=== PATIENT | male | born 1955 | race Caucasian/White ===

== ENCOUNTER 2022-02-09 05:12 | Observation (INO) ==
--- NOTE | 2021-12-24 14:09 | PAT Medication Instructions ---
Medication Instructions Date of Service December 24, 2021 Home Medications ibuprofen 200 mg tablet 200 mg PO Q6H PRN Pain sildenafil 100 mg tablet 100 mg PO DAILY PRN Erectile Dysfunction terazosin 2 mg capsule 2 mg PO HS Prostate Maintain Otc 2 tab PO QAM glucosamine sulf dipot chlr,msm,chond 550 mg-C 30 mg-nicole 1 mg capsule (Glucosamine Chondroitin) 1 cap PO QAM -zzs-lie-other kktii0f-twbj oil 350 mg- 400 mg capsule 1 cap PO QAM red yeast rice 600 mg capsule 1,200 mg PO QAM turmeric root extract 500 mg capsule 500 mg PO QAM ASK your surgeon for instructions ibuprofen 200 mg tablet 200 mg PO Q6H PRN Pain STOP taking 2 weeks before surgery Prostate Maintain Otc 2 tab PO QAM glucosamine sulf dipot chlr,msm,chond 550 mg-C 30 mg-nicole 1 mg capsule (Glucosamine Chondroitin) 1 cap PO QAM qdyed1-vmm-tjl-other psvly9m-eefx oil 350 mg- 400 mg capsule 1 cap PO QAM red yeast rice 600 mg capsule 1,200 mg PO QAM turmeric root extract 500 mg capsule 500 mg PO QAM STOP taking 24 hours before surgery sildenafil 100 mg tablet 100 mg PO DAILY PRN Erectile Dysfunction Take evening before surgery terazosin 2 mg capsule 2 mg PO HS OTHERWISE NOTHING TO EAT OR DRINK AFTER MIDNIGHT: Other Notes If you have any questions please call us at [phone] or [phone] or [phone] or [phone]
--- NOTE | 2022-01-23 13:36 | Anesthesiology Consultation ---
Date of Service January 23, 2022 Assessment & Plan (1) Encounter for pre-operative examination: - COVID screening: Per assessment on 01/23: No known COVID-19 positive contacts or current COVID-19 related symptoms. Travel screen negative. Pt was Covid positive approximately 01/06/22 (home test) > Symptoms resolved (Covid test done 01/23/22; [place] was negative). At surgeon discretion if preop Covid testing being done. - Outpatient joint assessment: Pt currently scheduled for inpatient pathway. If surgeon requests review for outpatient joint pathway, patient is acceptable candidate for outpatient joint program from anesthesia standpoint pending surgeon's office assessment of pt motivation/support/completion of same day joint program preop requirements. Chart Review Chart Review: Acceptable Risk for Surgery and Patient seen in Pre Admission Testing Teaching & Discussion Pre-Anesthesia Teaching/Discussion Notes: Instructed NPO after midnight before surgery,except medications with 15 cc of water. Medication instructions provided according to the PAT guidelines. History Surgery Operation Date: 02/09/22 09:50 Proposed Procedures p Right Total Hip Arthroplasty - David Najera MD Height/Weight Height: 6 ft Weight: 102.1 kg Allergies Allergy/AdvReac Type Severity Reaction Status Date / Time Tetracyclines Allergy Unknown Hives Verified 12/23/21 15:37 Medications Home Medications Medication Instructions Recorded Confirmed Last Taken ibuprofen 200 mg tablet 200 mg PO Q6H PRN Pain 12/05/21 12/23/21 Unknown sildenafil 100 mg tablet 100 mg PO DAILY PRN Erectile 12/05/21 12/23/21 Unknown Dysfunction terazosin 2 mg capsule 2 mg PO HS 12/05/21 12/23/21 Unknown Prostate Maintain Otc 2 tab PO QAM 12/23/21 12/23/21 Unknown glucosamine sulf dipot 1 cap PO QAM 12/23/21 12/23/21 Unknown chlr,msm,chond 550 mg-C 30 mg-nicole 1 mg capsule (Glucosamine Chondroitin) multivitamin 1 tab PO QAM 12/23/21 12/23/21 Unknown sddea6-adt-bke-other icxhq5r-hhhl 1 cap PO QAM 12/23/21 12/23/21 Unknown oil 350 mg- 400 mg capsule red yeast rice 600 mg capsule 1,200 mg PO QAM 12/23/21 12/23/21 Unknown turmeric root extract 500 mg 500 mg PO QAM 12/23/21 12/23/21 Unknown capsule Past Medical History Medical History Arthritis of right hip Cancer BCC x2 History of COVID-19 04/2020 > fatigue, resolved Approximately 01/06/22 (home test) > symptoms resolved (Covid test done 01/23/22; [place] was negative) Lumbar spondylosis Stenosis, cervical spine Exercise / Class Metabolic Activity II 4-5 Yardwork/Stairs/Walk up hill (one FS (no CP, no SOB)) Past Family History Family History Other No known health problems Past Surgical History Surgical History History of colonoscopy x3 History of tonsillectomy History of tooth extraction WTE Past Anesthesia History No Hx of Anesthesia Complications and No Family Hx of Anesthesia Complications History of PONV No Hx of PONV and No Hx of Motion Sickness Social History Smoking Status: Never smoker Do You Dip or Chew Tobacco: No Hx Alcohol Use: Yes Alcohol type: wine alcohol intake frequency: a few times a week Hx Substance Use: No Review of Systems Patient denies chest pain, shortness of breath, dyspnea on exertion, fever, chills, cough, wheezing, palpitations. Physical Exam Vital Signs VITALS BP 132/75 P 68 TEMP 98.3 SP02 97%RA RESP 18 PHYSICAL Significantly decreased cervical extension range of motion (2/2 arthritis per pt). Full TMJ range of motion. TMD 3 finger breaths Mallampati Score 2 Dentition: intact, + crown Lungs: clear throughout to auscultation Cardiac: regular rate and rhythm, no murmurs noted Spine: normal Carotid arteries: negative bruit Extremities: no edema Lab Results Anesthesia Preop Results Results Anesthesia Widget: WBC 4.30 K/ul (4.8-10.8) L 01/23/22 Hgb 14.1 g/dl (14.0-18.0) 01/23/22 Hct 41.9 % (40.1-51.0) 01/23/22 Plt 164 K/uL (130-400) 01/23/22 Na 137 mmol/L (136-145) 01/23/22 K 3.5 mmol/L (3.5-5.1) 01/23/22 Cl 103 mmol/L (98-107) 01/23/22 CO2 27 mmol/L (21-32) 01/23/22 BUN 10 mg/dl (6-23) 01/23/22 Creat 0.92 mg/dl (0.6-1.4) 01/23/22 Glucose Level 97 mg/dl (70-99(Fasting)) 01/23/22 PT 10.4 Seconds (9.0-12.0) 01/23/22 PTT 27.3 Seconds (21.0-31.0) 01/23/22 INR 1.0 (0.9-1.1) 01/23/22 Blood Type A Positive 01/23/22 Antibody Screen NEGATIVE 01/23/22 Testing Electrocardiogram Date: 01/23/22 Findings: + SB @ (57) Chest X-Ray Date: 12/22/21 Findings: + NAD COVID-19 Risk Screen Screening Information COVID-19 Screen Date: 01/23/22 Exposure 21 Days Family/Household +COVID Last 21 Days: No Exposure 10 Days Any COVID Exposure Last 10 Days: No Symptoms Last 10 Days Experienced COVID Sx Last 10 Days: No + COVID 0-90 Days COVID + in Last 0-90 Days: Yes + COVID Test 0-10 Day: No + COVID Test 11-90 Day: Yes
--- NOTE | 2022-02-07 11:50 | History and Physical Report ---
DATE OF SERVICE: 02/09/2022 CHIEF COMPLAINT: Persistent progressive right hip pain and discomfort. HISTORY OF PRESENT ILLNESS: A 66-year-old gentleman who presents for surgical treatment of his right hip. He has got a fairly long history of gradually progressive increasing right hip pain and discom fort that has gradually gotten worse over the past several years. He describes lateral hip, groin pa in, thigh pain radiating down to his knee and no further. He did have an intraarticular hip joint in jection, which helped him for about 3 days. He has become more debilitated by his pain. He limps mo re as the day goes on. He does have a history of some back issues as well, but would like to get his hip fixed. PAST MEDICAL HISTORY: 1. Hypertension. 2. Elevated cholesterol. 3. Chronic back pain. PAST SURGICAL HISTORY: Includes: 1. Tonsillectomy. 2. Oral surgery. ALLERGIES: TETRACYCLINE. CURRENT MEDICATIONS: Include: 1. Ibuprofen. 2. Terazosin. 3. Sildenafil. 4. Multivitamin. 5. Aspirin. 6. Tylenol. SOCIAL HISTORY: A 66-year-old gentleman. He is . 8 drinks per week. Does not smoke. FAMILY HISTORY: Noncontributory. REVIEW OF SYSTEMS: Negative for diabetes. No chest pain or shortness of breath. No history of DVT or PE. No known bleeding problems. PHYSICAL EXAMINATION: GENERAL: Shows a pleasant middle-aged male. Looks to be in pretty good health. HEENT: Benign. NECK: Supple. No lymphadenopathy. LUNGS: Clear to auscultation. HEART: Regular rate and rhythm. ABDOMEN: Soft, nontender, nondistended. EXTREMITIES: Grossly neurovascularly intact except as follows: Examination of the right hip reveals the patient walks with a slightly antalgic gait. Leg lengths appear equal. He has got pretty decen t hip motion with internal rotation to 10 degrees, but it recreates his pain. Negative straight leg raise. He is neurologically intact. X-RAYS: X-rays of the right hip show a moderate to advanced hip arthritis. He has got a similar mod erate to advanced hip arthritis in both hips. Near complete loss of his joint space. Still a little cartilage space remaining. Got some calcifications over the lateral acetabulum. He has got a Cam t ype impingement. ASSESSMENT: A 66-year-old gentleman with moderately advanced hip arthritis in both hips, right side more symptomatic than the left. He has failed conservative measures. Temporary response to injectio n. He would like to have his hip fixed. PLAN: We are going to proceed with right total hip replacement. The risks and benefits of this proc edure were explained to the patient and include but not limited to DVT, PE, , infection, neurolo gical injury, vascular injury, bleeding problem, pain, limited range of motion, stiffness, failure to relieve his symptoms, incomplete relief of symptoms, etc. The patient understands and desires to pr oceed. Informed consent was obtained. He is fully aware that this is not going to address his back issues. As far as discharge plans, he is planning to be discharged to home. He will use [employer] [facility] program. Job ID: [id number]
[2022-02-09] MEDS ORDERED: LR 60ML/HR IV SCH (06:00)
[2022-02-09] MEDS ORDERED: METOCLOPRAMIDE HCL 10 MG TABLET PO SCH (06:00)
[2022-02-09] MEDS ORDERED: LR 500ML BOLUS, THEN 15ML/HR IV SCH (06:00)
[2022-02-09] MEDS ORDERED: TRANEXAMIC ACID 1,000 MG **IV Pre-op IV SCH (06:00)
[2022-02-09] MEDS ORDERED: FAMOTIDINE 20 MG TAB PO SCH (06:00)
[2022-02-09] MEDS ORDERED: ACETAMINOPHEN 500 MG TAB PO SCH (06:00)
[2022-02-09] MEDS ORDERED: ceFAZolin 2000MG 2,000 MG/15 ML SYR IV SCH (06:00)
[2022-02-09] MEDS ORDERED: Scopolamine 1 MG TDSY TD SCH (06:00)
[2022-02-09] MEDS ORDERED: CeleBREX 200 MG CAP PO SCH (06:00)
[2022-02-09] MEDS ORDERED: BUPIVACAINE 0.5 % 5 MG/1 ML PF 10ML VIAL ONE (06:24)
[2022-02-09] MEDS ORDERED: EPINEPHrine INJ 1 MG/ML AMP ONE (06:35)
[2022-02-09] MEDS ORDERED: BUPIVACAINE 0.5 % 5 MG/1 ML MPF 30ML VIAL ONE (06:35)
[2022-02-09] MEDS ORDERED: MoRPHine SULFATE PF 1 MG/ML 10 ML AMP/VIAL ONE (06:38)
[2022-02-09] MEDS ORDERED: PROPOFOL IV EMULSION 10 MG/ML 20 ML VIAL IV ONE ×2 (06:38→08:19)
[2022-02-09] MEDS ORDERED: fentaNYL citrate 100 MCG/2 ML VIAL ONE (06:38)
[2022-02-09] MEDS ORDERED: MIDAZOLAM HCL 1 MG/ML 2ML VIAL ONE (06:38)
[2022-02-09] MEDS ORDERED: LIDOCAINE 2% MPF LOCAL 5 ML VIAL INFIL ONE (06:38)
--- NOTE | 2022-02-09 06:56 | History & Physical Bridge Note ---
Date of Service February 09, 2022 History & Physical Bridge Note I have examined the patient, reviewed the History & Physical and in the interval since the performance of the History & Physical I have noted the following changes of clinical significance: no changes noted
[2022-02-09] MEDS ORDERED: ONDANSETRON INJ 2 MG/ML 2 ML VIAL ONE (07:16)
[2022-02-09] MEDS ORDERED: NALOXONE HCL 0.4 MG/1 ML VIAL/CARP IV PRN ×2 (07:53→10:13)
[2022-02-09] MEDS ORDERED: PROMETHAZINE HCL 25 MG in SODIUM CHLORIDE 0.9% 50 ML IV PRN (07:53)
[2022-02-09] MEDS ORDERED: METOCLOPRAMIDE HCL 20 MG in SODIUM CHLORIDE 0.9% 50 ML IV PRN (07:53)
[2022-02-09] MEDS ORDERED: ePHEDrine sulfate 50 MG/ML AMP IV PRN (07:53)
[2022-02-09] MEDS ORDERED: LACTATED RINGER'S 500 ML IV PRN (07:53)
[2022-02-09] MEDS ORDERED: NALBUPHINE HCL INJ 10 MG/ML AMP IV PRN (07:53)
[2022-02-09] MEDS ORDERED: NALOXONE HCL 1 MG in SODIUM CHLORIDE 0.9% 1000ML 1,000 ML IV PRN (07:53)
[2022-02-09] MEDS ORDERED: MoRPHine SULFATE PF 1 MG/ML 10 ML AMP/VIAL INT SPINAL ONE (07:53)
[2022-02-09] MEDS ORDERED: HYDROmorphone INJ 0.5 MG/0.5 ML SYR IV PRN (07:53)
[2022-02-09] MEDS ORDERED: NALOXONE HCL 0.08 MG in SYRINGE 1.8 ML IV PRN (07:53)
[2022-02-09] MEDS ORDERED: NO NARCOTICS OR SEDATIVES SCH (08:00)
[2022-02-09] MEDS ORDERED: SODIUM CHLORIDE 0.9% 1000ML 1,000 ML IV SCH (08:00)
[2022-02-09] MEDS ORDERED: DC INTRASPINAL MORPHINE SCH (08:00)
--- NOTE | 2022-02-09 08:43 | Operative Report ---
PG Post Operative Report Pre & Post Diagnosis Operation Date: 02/09/22 07:00 Pre-Op Diagnosis: Right Hip Osteoarthritis Post-Op Diagnosis: Right Hip Osteoarthritis I identified the patient and participated in the time-out.: Yes Procedure Operation Date: 02/09/22 07:00 Actual Procedures p Right Total Hip Arthroplasty(Right) - David Najera MD Surgeon David Najera MD Conflicts Analyst Darin Baldwin PA-C Estimated Blood Loss 200 Findings Consistent with Post-Op Diagnosis Operative findings were advanced right hip DJD. He had grade 4 azxc-th-kjfz disease of the femoral head and acetabulum. Fairly significant anterior acetabular osteophyte. Small hip joint effusion. Mild synovitis. Fluids 1200 cc Specimens Right femoral head sent for pathology Drains None Anesthesia Type Spinal MAC Complications none Disposition Accompanied Patient To Recovery: Yes Indications Patient is a 66-year-old gentleman said a several year history of increasing right hip pain discomfort. Been through extensive conservative treatment including intra-articular injection but provide some temporary relief only. His symptoms continue to persist and is limiting his activities. He failed conservative measures. He does have a known history of some back issues as well but having significant hip pain and elected proceed with total hip arthroplasty. He was fully aware this was [place] to fix his back issues. Description of Procedure Operative implants consist of: 1 Biomet G7 size 56 mm acetabular shell. 2. 6.5 cancellous acetabular screws 1 of 35 mm length 1 to 20 mm length. 3. [place] hole registration officer. 4. Highly cross-linked polyethylene liner with a 56 mm outer diameter and 36 mm inner diam with a oneill placed inferior and posterior. 5. DePuy [place] size 13 KLA femoral stem. 6. +1.5/36 mm ceramic articular ball. The patient was taken the operating, identified, placed on the operating table supine position protectors were properly padded. IV antibiotics arrived by anesthesia team. Spinal anesthetic been implemented holding area. Rodriguez catheter was placed in sterile fashion. Patient then placed in the left lateral cubitus position. An axillary roll was placed. St[place]berg hip positioner was used for positioning. The right hip and leg were then prepped and draped in usual sterile fashion. A posterior lateral approach of the right hip was then performed through a curvilinear incision centered over the greater trochanter. Sharp dissection Through subcutaneous is down to the IT band gluteal fascia the IT band gluteal fascia incised longitudinally in line with skin incision. The underlying greater bursa was. The piriformis and external rotators were tagged and taken off the posterior aspect hip joint capsule. Great care was taken throughout the procedure protect the sciatic nerve at all times. The posterior capsule was then released leaving a large flap for later repair. Hip was internally rotated and dislocated. Femoral neck osteotomy cut was made with Final Cut 15 mm above the lesser trochanter. Femoral head was removed and sent for pathology. The femur was retracted anteriorly. Attention drawn the acetabulum. The acetabular labrum was excised. Pulmonary fat was excised. Sequential reaming the acetabular was then performed beginning with a size 45 and progressing up to a 55. I did reamed with a 56 reamer and then placed a 56 mm cup in about 40 degrees lateral opening and 20 degrees of anteversion. It was fixed with two 6.5 cancellous acetabular screws. An anterior osteophyte was removed. A trial liner was placed. Attention drawn the femur. The proximal femur was entered with a [employer] cutter followed by canal finder. I then broached beginning with size 8 and progressing up to a 12. I countersunk this slightly so we did place a 13 broach. I cannot fit this the whole way down and we left about 2 mm proud. We then trialed the hip. The +1.5 articular ball provide full stability, appropriate leg lengths, and appropriate soft tissue tension. I did elect to place a oneill inferior and posterior to maximize his stability in flexion. Leg lengths appeared fairly equal. He does have arthritis in his other hip and its likely this leg may be just slightly longer than the other. This may need to be corrected at the time of his other hip surgery. We elect to place these implants. All trial implants were removed. An apex hole registration officer was placed. Highly cross-linked polyethylene liner was placed with a oneill placed inferior and posterior. A DePuy size 13 KLA femoral stem was impacted in position. Once again we left this about 2 mm proud. I elect to place a 1.5/36 mm ceramic articular ball. Hip was located once again found to be stable. Attention drawn toward closing. The wound was irrigated scope soft and pulsatile lavage solution. I did inject locally with 60 cc of absent Marcaine with epinephrine. The posterior capsule and external rotators then repaired through drill holes in the posterior trochanter with #2 Tycron suture. The IT band gluteal fascia then closed in 1 PDS suture running fashion for subcutaneous tissues then closed with 2 layers the deep layer #1 Vicryl suture and subcutaneous tissue with 2-0 Dexon suture in a buried interrupted fashion. Skin was closed skin prakash. Leg was then cleaned and dried a sterile dressing was Xeroform, 4 x 4's, sterile ABD pad, foam tape was applied. The patient then transferred to the recovery room in stable condition. Patient tolerated procedure well and there were no complications. Darin Baldwin, my physician library circulation assistant, was present for the entire procedure. His assistance was essential and required for appropriate patient positioning, prepping and draping, surgical exposure, performing the technical details of the operation, placement the implants, closure of the wound, and placement of the sterile bandage. I attest to the content of the Intraoperative Record and any orders documented therein. Any exceptions are noted below.
--- NOTE | 2022-02-09 09:21 | Anesthesiology Progress Note ---
Date of Service February 09, 2022 Anesthesia Post Procedure Vital Signs Vital Signs: Temp Pulse Pulse Resp BP Pulse Ox O2 Del Method 02/09/22 09:00 36.8 C 57 L 12 119/71 98 Nasal Cannula 02/09/22 08:40 60 12 120/64 99 Oxymask 02/09/22 08:50 59 L 12 122/78 100 Oxymask 02/09/22 08:32 36.8 C 66 14 118/61 98 Oxymask 02/09/22 05:41 36.8 C 60 20 164/89 H 97 Room Air O2 Flow Rate 02/09/22 09:00 2 02/09/22 08:40 6 02/09/22 08:50 6 02/09/22 08:32 6 02/09/22 05:41 Pain Intensity Right Hip: Pain Intensity: 1 Right Shoulder: Pain Intensity: 1 Transfer of Care Handoff Completed per policy Notes Mental Status: alert / awake / arousable and participated in evaluation Nausea / Vomiting: adequately controlled Pain: adequately controlled Airway Patency, RR, SpO2: stable & adequate BP & HR: stable & adequate Hydration State: stable & adequate Neuraxial Anesthesia: was administered and sensory block is resolving Anesthetic Complications: no major complications apparent and Pt Satisfied with anesthetic care
--- NOTE | 2022-02-09 09:45 | XRay Report ---
XR hip 1V RT w pelvis CLINICAL HISTORY: Postoperative evaluation. COMPARISON: Right hip radiographs December 04, 2021. FINDINGS: Alignment of the total right hip arthroplasty is anatomic. There is no periprosthetic frac ture or unexpected radiopaque foreign body. There are acetabular screws and skin prakash. Left hip jeni int space narrowing with osteophytosis is noted. IMPRESSION: Expected findings following total right hip arthroplasty. ACT 112: Negative or not required by law. Electronically signed by: Dawit Joyce M.D. 02/09/2022 9:44 AM
[2022-02-09] MEDS ORDERED: ALUMINUM/MAGNESIUM SUSP 30 ML UDC PO PRN (10:13)
[2022-02-09] MEDS ORDERED: NON-FORMULARY MEDICATION (Sildenafil 100 mg tablet) PO PRN (10:13)
[2022-02-09] MEDS ORDERED: MAGNESIUM HYDROXIDE SUSP 30 ML UDC PO PRN (10:13)
[2022-02-09] MEDS ORDERED: bisacodyL 10 MG SUPP PR PRN (10:13)
[2022-02-09] MEDS ORDERED: NON-FORMULARY MEDICATION (Multivitamin Tablet) PO SCH (10:13)
[2022-02-09] MEDS ORDERED: NON-FORMULARY MEDICATION (Glucos Sul 2kcl-Msm-Chond-C-Mn [Glucosamine Chondroitin] 550-30- PO SCH (10:13)
[2022-02-09] MEDS ORDERED: NON-FORMULARY MEDICATION (Turmeric Root Extract 500 mg Capsule) PO SCH (10:13)
[2022-02-09] MEDS ORDERED: [UNRECOGNIZED DRUG - OTHER] PO SCH (10:13)
[2022-02-09] MEDS: DOCUSATE SODIUM/SENNA 50/8.6MG TAB PO SCH ×2 (11:14→20:29)
[2022-02-09] MEDS: DOCUSATE SODIUM 100 MG CAP PO SCH ×2 (11:15→20:29)
[2022-02-09] MEDS: OMEGA-3 (PURIFIED FISH OIL) 1 GM CAP PO SCH (11:15)
[2022-02-09] MEDS: MULTIVITAMIN TAB PO SCH (11:15)
[2022-02-09] MEDS: TAMSULOSIN HCL 0.4 MG CAP PO SCH (11:26)
[2022-02-09] MEDS: ASPIRIN 81 MG ECTAB PO SCH ×2 (11:26→20:28)
[2022-02-09] MEDS: diphenhydrAMINE 50 MG/ML VIAL IV PRN ×2 (11:30→19:42)
[2022-02-09] MEDS: ACETAMINOPHEN 500 MG TAB PO SCH ×2 (13:35→21:12)
[2022-02-09] MEDS: ceFAZolin 2000MG 2,000 MG/15 ML SYR IV SCH ×2 (14:14→21:11)
[2022-02-09] MEDS: SODIUM CHLORIDE 0.9% 1000ML 1,000 ML IV SCH ×2 (14:14→21:08)
[2022-02-09] MEDS ORDERED: TRANEXAMIC ACID / 0.7% NACL 1,000 MG/100 ML BAG IV SCH (14:45)
[2022-02-09] MEDS: ASCORBIC ACID 500 MG TAB PO SCH (16:27)
[2022-02-09] MEDS: Scopolamine CHECK PATCH PLACEMENT SCH (16:27)
--- NOTE | 2022-02-09 17:17 | Progress Notes ---
DATE OF SERVICE: 02/09/2022 SUBJECTIVE: A 66-year-old gentleman, postop from a right hip replacement. He is doing well. Really not having any pain yet. No chest pain or shortness of breath. Not feeling dizzy or lightheaded. OBJECTIVE: VITAL SIGNS: Temperature is 36.7. Vital signs are stable. PHYSICAL EXAMINATION: GENERAL: Shows a pleasant middle-aged male. He is lying in bed, looks quite comfortable. LUNGS: Clear to auscultation. HEART: Regular rate and rhythm. ABDOMEN: Soft, nontender, nondistended. EXTREMITIES: Grossly neurovascularly intact except as follows: Examination of the right leg reveals the leg to be well aligned. Leg lengths are equal. Dressing is clean, dry and intact. Thigh is so ft and supple. He is neurologically intact. X-RAYS: X-rays of the right hip from recovery room are reviewed. It shows a right uncemented total hip arthroplasty. Components looked to be in good position. No signs of problems. ASSESSMENT: A 66-year-old gentleman, postoperative from a right hip replacement. He is doing well. Pain is controlled. Hip is located. He is neurologically intact. PLAN: 1. DVT prophylaxis includes thigh-high TEDs, SCDs, and aspirin twice a day. 2. PT, OT, weightbear as tolerated. Right total hip protocol. 3. Pain control, doing okay with current pain regimen. 4. IV antibiotics x24 hours. 5. Disposition: Plan to discharge to home with some home health once adequately recovered and getti ng around safely. Job ID: [id number]
[2022-02-09] MEDS: SENNA 8.6 MG TAB PO SCH (20:29)
[2022-02-09] MEDS: TERAZOSIN HCL 1 MG CAP PO SCH (20:30)
[2022-02-10] MEDS: Scopolamine CHECK PATCH PLACEMENT SCH ×3 (00:34→15:16)
[2022-02-10] MEDS: KETOROLAC TROMETHAMINE 15 MG/ML VIAL IV SCH ×4 (01:11→19:54)
[2022-02-10] MEDS ORDERED: diphenhydrAMINE Capsule 25 MG CAP PO PRN (01:53)
[2022-02-10] MEDS ORDERED: traMADol HCL 50 MG TABLET PO PRN (01:53)
[2022-02-10] MEDS ORDERED: HYDROmorphone INJ 0.5 MG/0.5 ML SYR IV PRN (01:53)
[2022-02-10] MEDS ORDERED: ONDANSETRON INJ 2 MG/ML 2 ML VIAL IV PRN (01:53)
[2022-02-10] MEDS ORDERED: METOCLOPRAMIDE HCL INJ 5 MG/ML 2 ML VIAL IV PRN (01:53)
[2022-02-10] MEDS: ACETAMINOPHEN 500 MG TAB PO SCH ×3 (06:06→21:05)
[2022-02-10 06:26] LABS: Basophils # (auto) 0.02 K/uL (0-0.2); Basophils % (auto) 0.2 %; Eosinophils # (auto) 0.04 K/uL (0-0.50); Eosinophils % (auto) 0.4 %; Hematocrit (blood only) 35.2 % (40.1-51.0); Hemoglobin 12.1 g/dl (14.0-18.0); Immature Granulocytes # (auto) 0.03 K/uL (0.00-0.02); Immature Granulocytes % (auto) 0.3 %; Lymphocytes # (auto) 1.47 K/uL (1.2-3.4); Lymphocytes % (auto) 14.6 %; Mean Corpuscular Hemoglobin 31.6 pg (25.0-34.0); Mean Corpuscular Hgb Conc 34.4 g/dL (32.0-36.0); Mean Corpuscular Volume 91.9 fL (80.0-100.0); Monocytes # (auto) 0.81 K/uL (0.24-0.82); Neutrophils # (auto) 7.73 K/uL (1.4-6.5); Neutrophils % (auto) 76.5 %; Platelet Count 149 K/uL (130-400); RDW Standard Deviation 40.7 fL (36.4-46.3); Red Blood Count 3.83 M/uL (4.63-6.08)
[2022-02-10 07:00] LABS: BUN Creatinine Ratio 15.1 (10-20); Calcium 8.7 mg/dl (8.5-10.1); Creatinine Clr Calc Pharmacy 105.9 ml/min; Est GFR (African American) 105.5 ml/min
[2022-02-10] MEDS ORDERED: dexAMETHasone 10 MG in SYRINGE 0 ML IV SCH (08:00)
[2022-02-10] MEDS: OMEGA-3 (PURIFIED FISH OIL) 1 GM CAP PO SCH (08:56)
[2022-02-10] MEDS: DOCUSATE SODIUM/SENNA 50/8.6MG TAB PO SCH ×2 (08:56→19:57)
[2022-02-10] MEDS: ASCORBIC ACID 500 MG TAB PO SCH ×2 (08:56→17:49)
[2022-02-10] MEDS: DOCUSATE SODIUM 100 MG CAP PO SCH ×2 (08:56→19:58)
[2022-02-10] MEDS: TAMSULOSIN HCL 0.4 MG CAP PO SCH (08:56)
[2022-02-10] MEDS: MULTIVITAMIN TAB PO SCH (08:56)
[2022-02-10] MEDS: ASPIRIN 81 MG ECTAB PO SCH ×2 (08:56→19:56)
--- NOTE | 2022-02-10 16:50 | Progress Notes ---
DATE OF SERVICE: 02/10/2022. SUBJECTIVE: A 66-year-old gentleman postoperative day 1 from right hip replacement. His hip is quit e a bit more sore today. No chest pain or shortness of breath. Therapy went okay, but not great. OBJECTIVE: VITAL SIGNS: Temperature 37.1. Vital signs are stable. GENERAL: Physical exam shows a pleasant middle-aged male. He is lying in bed, looks reasonably comf ortable. Seems to be a little bit confused at times. EXTREMITIES: Examination of the right hip reveals dressing to be clean, dry and intact. Leg lengths were equal. Thigh is soft and supple. He is neurologically intact. LABORATORY DATA: Hemoglobin 12.1. Hematocrit 35.2. Electrolytes are stable. ASSESSMENT: A 66-year-old gentleman postoperative day 1 from a right hip replacement, doing okay. S eems a little bit confused and did okay in therapy, but not great. He has not done steps yet. PLAN: 1. DVT prophylaxis includes thigh-high TEDs, SCDs, and aspirin twice a day. 2. PT, OT, weightbear as tolerated. Right total hip protocol. 3. Pain control, doing okay with current pain regimen. We will need to be careful not to give him to o much medicines to influence confusion. 4. Disposition. He is hoping to be discharged to home. He has not passed therapy yet. Hopefully, will do some steps tomorrow and get around a little bit better and discharge to home tomorrow with [facility]. Job ID: [id number]
[2022-02-10] MEDS: TERAZOSIN HCL 1 MG CAP PO SCH (19:58)
[2022-02-10] MEDS: SENNA 8.6 MG TAB PO SCH (19:59)
[2022-02-11] MEDS: Scopolamine CHECK PATCH PLACEMENT SCH ×2 (00:14→08:56)
[2022-02-11] MEDS: KETOROLAC TROMETHAMINE 15 MG/ML VIAL IV SCH ×2 (01:39→08:55)
[2022-02-11] MEDS: ACETAMINOPHEN 500 MG TAB PO SCH (05:35)
[2022-02-11] MEDS: DOCUSATE SODIUM 100 MG CAP PO SCH (08:55)
[2022-02-11] MEDS: ASPIRIN 81 MG ECTAB PO SCH (08:55)
[2022-02-11] MEDS: ASCORBIC ACID 500 MG TAB PO SCH (08:55)
[2022-02-11] MEDS: DOCUSATE SODIUM/SENNA 50/8.6MG TAB PO SCH (08:55)
[2022-02-11] MEDS: TAMSULOSIN HCL 0.4 MG CAP PO SCH (08:55)
[2022-02-11] MEDS: MULTIVITAMIN TAB PO SCH (08:55)
[2022-02-11] MEDS: OMEGA-3 (PURIFIED FISH OIL) 1 GM CAP PO SCH (08:55)
--- NOTE | 2022-02-11 11:52 | Progress Notes ---
DATE OF SERVICE: 02/11/2022 SUBJECTIVE: A 66-year-old gentleman postoperative day 2 from a right hip replacement. He is doing m uch better today. His confusion has resolved. His pain is controlled. Therapy went well. Anxious to get home. No chest pain or shortness of breath. OBJECTIVE: VITAL SIGNS: Temperature 36.5. Vital signs are stable. GENERAL: Shows a pleasant middle-aged male. He is up walking around his room quite well with a walk er. He can actually walk without the walker. Incision is clean, dry and intact. Leg lengths were equal. Hip is located. He is neurologically in tact. ASSESSMENT: A 66-year-old gentleman postoperative day 2 from a right hip replacement, doing well. T he confusion has resolved. He did well in therapy. Hoping to go home. PLAN: 1. DVT prophylaxis includes thigh-high TEDs, SCDs, and aspirin twice a day. 2. PT, OT, weightbear as tolerated. Right total hip protocol. 3. Pain control, doing well with current pain regimen. 4. Confusion. Confusion has resolved. 5. Disposition: Plan to discharge to home with some home health today. Job ID: [id number]
--- NOTE | 2022-02-13 15:53 | Discharge Summary ---
Date of Service February 13, 2022 Discharge Data Procedures Performed Operation Date: 02/09/22 07:00 Actual Procedures p Right Total Hip Arthroplasty(Right) - David Najera MD Hospital Course (1) S/P total right hip arthroplasty: This is a 66 year old patient admitted on 02/09/22 and underwent total hip arthroplasty. He tolerated the procedure well and there were no complications. Transferred to the PACU post op and later to the orthopedic floor for further care. He was given ancef for antibiotic prophylaxis. He was also given PATIENCE stockings, SCDs, and aspirin for DVT prophylaxis. Hemoglobin, hematocrit, and vital signs were monitored during his hospital stay and remained stable. Did not require any blood transfusions. There were no complications during his hospital stay. By post op day #2 the patient was tolerating a regular diet, pain was reasonably controlled with oral pain medicine, and he was participating in physical therapy. On post op day #2 the patient was discharged home and set up with home health care. He was given printed discharge instructions including prescriptions for extra strength tylenol, aspirin, toradol, zofran, senokot, flomax, and tramadol. Continue physical therapy, weight bearing as tolerated. Continue hip precautions. Continue PATIENCE stockings. Follow up approximately 2 weeks post op or sooner if there are problems or concerns. Coding Level of Care Code None Diagnoses S/P total right hip arthroplasty Z96.641
== END 2022-02-11 14:19 | disposition home health service (06) ==
LOC: 3E 05:12 → ASU 05:12